=== PATIENT | male | born 1965 | race Caucasian/White ===

== ENCOUNTER 2016-11-07 12:13 | Emergency (ER) | payer MEDICAID ==
[~2016-11-07] VITALS: Ht 185.4 cm; Wt 90.1 kg
[2016-11-07 12:23] VITALS: BP 104/64
[2016-11-07] MEDS ORDERED: SULFAMETH./TRIMETHOPRIM DS 800MG/160MG TABLET PO ONE (13:00)
[2016-11-07] MEDS ORDERED: CEPHALEXIN 500 MG CAPSULE PO ONE (13:00)
[2016-11-07] MEDS ORDERED: SULFAMETH./TRIMETHOPRIM DS 800MG/160MG TABLET ONE (13:04)
[2016-11-07] MEDS ORDERED: CEPHALEXIN 500 MG CAPSULE ONE (13:05)
== END 2016-11-07 13:21 | disposition home or self-care (01) ==
LOC: ED 13:15
DX: L03.211 Cellulitis of face (principal); F17.200 Nicotine dependence, unspecified, uncomplicated
CPT/HCPCS: 99283

== ENCOUNTER 2016-11-10 09:52 | Emergency (ER) | payer MEDICAID ==
[~2016-11-10] VITALS: Ht 185.4 cm; Wt 89.5 kg
[2016-11-10 10:01] VITALS: BP 129/79
[2016-11-10] MEDS ORDERED: LIDOCAINE 1%, 20ML ONE (10:27)
[2016-11-10] MEDS ORDERED: LIDOCAINE 1%, 20ML SQ ONE (10:30)
[2016-11-10] MEDS ORDERED: CEFAZOLIN 1,000 MG ONE (10:55)
[2016-11-10] MEDS ORDERED: CEFAZOLIN 1,000 MG IM ONE (11:00)
== END 2016-11-10 11:38 | disposition home or self-care (01) ==
LOC: ED 11:15
DX: L02.01 Cutaneous abscess of face (principal); F17.210 Nicotine dependence, cigarettes, uncomplicated
CPT/HCPCS: 10060; 96372; 99284; J0690; J3490

== ENCOUNTER 2016-11-13 08:39 | Emergency (ER) | payer MEDICAID ==
[~2016-11-13] VITALS: Ht 185.4 cm; Wt 87.1 kg
[2016-11-13 08:42] VITALS: BP 118/57
== END 2016-11-13 09:14 | disposition home or self-care (01) ==
LOC: ED 09:08
DX: L02.01 Cutaneous abscess of face (principal)
CPT/HCPCS: 99281; 99283

== ENCOUNTER 2018-01-18 15:33 | Emergency (ER) | payer MEDICAID ==
[~2018-01-18] VITALS: Ht 182.9 cm; Wt 87.4 kg
[2018-01-18 15:44] VITALS: BP 103/79
[2018-01-18] MEDS ORDERED: HYDROcodone/APAP 5/325 TABLET PO STA (16:32)
[2018-01-18] MEDS ORDERED: HYDROcodone/APAP 5/325 TABLET ONE (16:38)
== END 2018-01-18 16:59 | disposition home or self-care (01) ==
LOC: ED 16:48
DX: S43.51XA Sprain of right acromioclavicular joint, initial encounter (principal); F17.200 Nicotine dependence, unspecified, uncomplicated; W01.0XXA Fall on same level from slipping, tripping and stumbling without subsequent striking against object, initial encounter; Y93.89 Activity, other specified; Y92.89 Other specified places as the place of occurrence of the external cause; Y99.8 Other external cause status
CPT/HCPCS: 99284